=== PATIENT | male | born 1990 ===

== ENCOUNTER 2020-06-23 15:48 | Emergency (ER) | payer OTHER, SELFPAY ==
[2020-06-23 16:00] VITALS: BP 141/91; PULSE 90; RESP 15; TEMP 37.2; O2SAT 98
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
--- NOTE | 2020-06-23 17:00 | DI.RAD_ITS ---
EXAM: XR FINGER LT RING POST REDUC CLINICAL HISTORY: s/p reduction, confirm placement TECHNIQUE: COMPARISON: No exams were available for comparison FINDINGS: IMPRESSION: Two views were obtained and show reduction of previously noted dislocation at the PIP joint. Dorsal intra-articular fracture of the base of the middle phalanx again noted, essentially nondisplaced. RADIATION DOSE DELIVERED: Total DLP
--- NOTE | 2020-06-23 17:26 | DI.VRAD_ITS ---
PROCEDURE INFORMATION: Exam: XR Left Finger(s) Exam date and time: 06/23/2020 5:08 PM Age: 29 years old Clinical indication: Other: Post reduction, confirm placement TECHNIQUE: Imaging protocol: XR Left fingers. Views: Minimum 2 views. COMPARISON: CR XR FINGER LT RING 06/23/2020 4:36 PM FINDINGS/IMPRESSION: When compared with the examination performed on the same date at 4:36 p.m., there has been interval reduction of the prior fracture dislocation, now in anatomic alignment. Again appreciated is a small basal dorsal corner fracture at the base of the middle phalanx. There is soft tissue swelling appreciated. Dictated and Authenticated by: Tre Hairston MD. Ordering:FEDE Torre MD
== END 2020-06-23 17:39 | disposition home or self-care (01) ==
PROVIDERS: Emergency Provider Physician Assistant
DX: S69.92XA Unspecified injury of left wrist, hand and finger(s), initial encounter (principal); S62.625A Displaced fracture of middle phalanx of left ring finger, initial encounter for closed fracture; V18.0XXA Pedal cycle driver injured in noncollision transport accident in nontraffic accident, initial encounter; Y93.55 Activity, bike riding
CPT/HCPCS: 26720; 26770; 73140